=== PATIENT | female | born 1975 | race Caucasian/White ===

== ENCOUNTER → 2016-03-01 | Outpatient (CLI) | payer OTHER ==
[~2016-03-01] VITALS: Ht 175.3 cm; Wt 71.9 kg
[~2016-03-01] MED LIST: BENAZEPRIL HCL20 MG PO; IBUPROFEN 200200 M1 PO; LOPRESSOR25 PO; NUCYNTA50 MG PO
--- NOTE | ~2016-03-01 | HPC ---
[facility] [place] [address] PAIN MANAGEMENT CONSULTATION Name: HARVINDER MARTÍNEZ Room #: REG Valery Yaa.#: [id number] Admission: 03/01/16 Attend Phys: Anup Yang DO Discharge: Date of : 77 Report #: [id number] THIS REPORT FOR: //name// CC: TOM physician/PCP Anup Yang DATE OF SERVICE: 03/01/2016 DATE OF SERVICE: 03/01/2016. CHIEF COMPLAINT: Neck pain, right upper extremity pain and paresthesias. HISTORY OF PRESENT ILLNESS: As you know, the patient is a very pleasant 40-year-old female referred to our service for evaluation for cervical radiculopathy. The patient states her pain began 11/05/2015 without inciting injury or trauma. Despite physical therapy, pain actually intensified. She was sent to our clinic on 02/10/2016, diagnosed with cervical radiculopathy secondary to the displacement of a cervical intervertebral disk, at that visit the patient underwent a cervical epidural injection under fluoroscopic guidance. The patient reports improvement in symptoms lasting only 2 days. She returns today in followup visit indicating a pain level of around 7/10. States her pain is constant, burning, shooting, aching, pulling, gnawing, sharp, exacerbated with looking up and reaching target with the right arm. Medications, heat, cold compresses and rest appear to improve pain. She has returned today in followup visit to discuss treatment options for ongoing pain issues. ALLERGIES: BUPRENORPHINE. CURRENT MEDICATIONS: Metoprolol 50 mg twice day, benazepril 20 mg once a day, Lyrica 75 mg p.o. q.h.s. SOCIAL HISTORY: The patient denies tobacco use. Denies IV or illicit drug use. Admits to approximately 1-2 alcoholic beverages per day. She is employed as an military police officer, working, not receiving workmen's compensation, unaccompanied today. PHYSICAL EXAMINATION: VITAL SIGNS: Blood pressure 161/106, pulse is 88, respiratory rate 14, unlabored. The patient 95% on room air. Height 5 feet 9 inches tall, weight 158.6 pounds, BMI calculated 23.4. GENERAL: Well developed, well nourished, well hydrated 40-year-old female appearing stated age, placing current pain score 7/10. HEENT: Normocephalic, atraumatic. Pupils equal, round, reactive to light. Extraocular muscles are intact. Sclerae nonicteric, without injection. EXTREMITIES: Show no clubbing, no cyanosis, [place] [address] PAIN MANAGEMENT CONSULTATION Name: HARVINDER MARTÍNEZ Room #: REG [facility]..#: [id number] Admission: 03/01/16 Attend Phys: Anup Yang DO Discharge: Date of : 77 Report #: [id number] MUSCULOSKELETAL: Upper extremity strength remains equal and symmetrical 5/5. Pain is noted with biceps flexion, triceps extension on the right when compared to left. Spurling's test positive for right. Cervical provocation testing including extension, rotation and lateral flexion to the right, all intensify cervical pain. ASSESSMENT: 1. Cervical radiculopathy. 2. Displacement of cervical intervertebral disk with radiculopathy. 3. Cervical spondylosis with radiculopathy. PLAN: 1. The patient returns today in followup visit. Unfortunately, only receiving transient improvement in symptoms with the epidural injection provided at last visit. The patient and I did discuss the possibility of repeating the epidural injection in hopes of improving pain further. After a very long discussion about treatment options. We chose to try medication management and we did discuss the possibility of referral for surgery. Given the fact the patient did not receive much in the way of analgesic benefit with the initial epidural injection. I am concerned that her symptoms were more related to a mechanical compression and less of an inflammatory process that is to be typically alleviated with epidural injections. She is amenable to make changes in medication therapy, assuming no side effects. 2. The patient will discontinue the Lyrica she was given samples of this medication, but is only able to achieve 75 mg dose due to sleepiness and disorientation. Due to the side effect, we would not be able to increase the Lyrica further. I recommend a change in medication therapy with the addition of Gralise, the long acting form of Neurontin this tends to have a lot less side effects than the immediate release Lyrica and immediately release gabapentin. We will trial the patient on a Gralise trial pack. She will start at 300 mg at night 2 hours before bedtime escalate to 600 mg the next evening and follow the titration pack as directed. The patient was advised to watch for side effects of somnolence, decreasing mental acuity, disorientation and confusion with the use of this medication. The patient will contact our clinic when she reaches an efficacious level. Prescriptions will be called in to her local pharmacy for this medication. 3. The patient will be started on Nucynta 50 mg dose 1 tab p.o. t.i.d. p.r.n. pain, #90. The patient has trialed various medications in the past having side effects of this nausea and vomiting with tramadol, hydrocodone, oxycodone. Even Toradol caused the patient some dysphoric effects. We will trial the patient on Nucynta, which has a low side effect profile in regards to GI issues, but has a high efficacy with a neuropathic pain such as the patient's condition. We have given the patient this prescription with no refills, I have hopeful to see improvement in symptoms with this therapy. 4. Would recommend referral to Dr. Shaun Patel with [facility] for options from a surgical standpoint to address cervical radiculopathy. [facility] [address] [place] [address] PAIN MANAGEMENT CONSULTATION Name: HARVINDER MARTÍNEZ Room #: REG [facility] Juan.#: [id number] Admission: 03/01/16 Attend Phys: Anup Yang DO Discharge: Date of : 77 Report #: [id number] The patient does have a unilateral lesion in the cervical spine, which would be amenable to surgery. Recommend a surgery consultation just to discuss options. She was given the names of Dr. Shaun Patel and his partner Dr. Dominic Padilla for evaluation. We will make an appointment for the patient at her earliest convenience to be seen by either nurse practitioner or the surgeon themselves discussed options for treatment. 5. We will see the patient back in followup visit in approximately 3 weeks. I wish to review the efficacy of the medications provided today. If she notes good improvement in symptoms with the Gralise. We will have already called in a prescription to her local pharmacy by that time. We will discuss the efficacy of the Nucynta at that visit. If the patient is not improving and cannot tolerate medications we will see her back in earlier time. <ELECTRONICALLY SIGNED> By: Anup Yang DO 03/02/16 [id number] Anup Yang DO /nt
[2016-03-01 09:17] VITALS: BP 161/106
== END | disposition home or self-care (01) ==
LOC: PAIN 07:06
DX: M54.12 Radiculopathy, cervical region (principal); M50.10 Cervical disc disorder with radiculopathy, unspecified cervical region; M47.22 Other spondylosis with radiculopathy, cervical region